=== PATIENT | female | born 1955 | race Caucasian/White ===

== ENCOUNTER → 2020-05-27 | Outpatient (CLI) | payer BC ==
[~2020-05-27] MED LIST: CITA10TA4 PO; LORA10TA55 PO; SIMV40TA18 PO; TURM500C4 PO; UBID10CA5 PO
== END | disposition home or self-care (01) ==
LOC: LAB 11:10
PROVIDERS: ATTEND Registered Nurse
DX: Z01.818 Encounter for other preprocedural examination (principal); Z11.59 Encounter for screening for other viral diseases
CPT/HCPCS: 36415; U0003

== ENCOUNTER → 2020-05-30 | Day surgery (SDC) | payer BC ==
[~2020-05-30] MED LIST changes: +IPRATRPIUM/ALBUTEROL 0.5/2.5MG 3 ML NEBU. NEB PRN; +IV RINGERS SOLUTION,LACTATED 1,000 ML IV SCH; +MIDAZOLAM HCL PF 2 MG/2 ML VIAL. IV ONE; +PROPOFOL 10,000 MCG/ML (20ML) VIAL IV ONE
[2020-05-30 10:31] VITALS: BP 165/79
--- NOTE | 2020-06-03 18:11 | PATHOLOGY ---
[facility] Accession Number: [id number] . 01 Material submitted: . colon - SIGMOID POLYP. Modifiers: sigmoid . 01 Clinical history: . None provided. . 02 Diagnosis: Colon biopsies, sigmoid polyp: - Hyperplastic polyp. LB 06/03/2020 1553 Local . 02 Comment: There are no adenomatous changes or evidence of malignancy. (JPM/db; 06/03/2020) . 02 Electronically signed: . Cornelio Mcgovern MD, Pathologist NPI- [id number] . 01 Gross description: . Received in formalin labeled "Rachel, Lola, sigmoid polyp" is a 0.5 x 0.3 x 0.1 cm aggregate of rizo-brown soft tissue fragments. The specimen is submitted entirely in A1. ([facility]; 06/02/2020) [facility] 06/02/2020 1001 Local . 02 Pathologist provided ICD-10: K63.5 . 02 CPT . 423454 Specimen Comment: A courtesy copy of this report has been sent to [phone] Specimen Comment: [id number] Specimen Comment: Report sent to / DR WISE Performed at: 01 [facility] [address], [place] [id number] MD Rome Payne MD Phone: [phone] Performed at: 02 [facility] [address] [place], [place] [id number] MD Cornelio Mcgovern MD Phone: [phone]
== END | disposition home or self-care (01) ==
LOC: SURG 07:45
PROVIDERS: ATTEND Internal Medicine Gastroenterology
DX: Z12.11 Encounter for screening for malignant neoplasm of colon (principal); K63.5 Polyp of colon; K57.30 Diverticulosis of large intestine without perforation or abscess without bleeding; Z88.8 Allergy status to other drugs, medicaments and biological substances; Z79.899 Other long term (current) drug therapy
CPT/HCPCS: 45380; J2704; J7120

== ENCOUNTER → 2021-03-18 | Outpatient (CLI) | payer MEDICARE ==
[2020-05-30 10:31] VITALS: BP 165/79
[~2021-03-18] MED LIST changes: -IPRATRPIUM/ALBUTEROL 0.5/2.5MG 3 ML NEBU. NEB PRN; -IV RINGERS SOLUTION,LACTATED 1,000 ML IV SCH; +LORA-52 PO; -LORA10TA55 PO; -MIDAZOLAM HCL PF 2 MG/2 ML VIAL. IV ONE; -PROPOFOL 10,000 MCG/ML (20ML) VIAL IV ONE
--- NOTE | 2021-03-18 11:52 | RAD ---
INDICATION: Screening for osteopenia/osteoporosis. Postmenopausal evaluation. COMPARISON: None. TECHNIQUE: Bone densitometry was performed through the lumbar spine and proximal femur. IMPRESSION: Lumbar Spine: BMD: 1.14 T-Score: -0.3 Range: Normal Proximal Femur: BMD: 0.99 T-Score: 0.3 Range: Normal World Health Organization Criteria for Bone Density: T-Score: > -1.0: Normal Range < -1.0 to -2.5: Osteopenic Range < -2.5: Osteoporotic Range Electronically signed by: García Tim MD (03/18/2021 11:49 AM) [id number]
== END ==
LOC: DXRAD 10:59
PROVIDERS: ATTEND Family Medicine
DX: Z78.0 Asymptomatic menopausal state (principal)
CPT/HCPCS: 77080